=== PATIENT | female | born 1990 | race Caucasian/White ===

== ENCOUNTER 2016-09-09 07:36 | Inpatient (IN) | payer OTHER ==
[~2016-09-09] VITALS: Ht 170.2 cm; Wt 63.0 kg
[2016-09-09 08:50] LABS: HEMATOCRIT 35.4 % (36.0-46.0); MCH 29.1 PG (29.0-34.0); MCHC 34.7 G/DL (30.0-36.0); MCV 83.7 FL (83-99); MEAN PLAT.VOLUME 10.6 uM^3 (9.5-12.4); PLATELET COUNT 237 K/uL (156-360); RBC DIS.WIDTH-CV 11.2 % (11.8-14.6); RBC DIS.WIDTH-SD 34.3 % (39-53); RED BLOOD COUNT 4.23 M/uL (3.80-5.20); WHITE BLOOD COUNT 6.1 K/uL (4.1-10.2)
[2016-09-09 09:06] LABS: ADD MIUA? NO; BILIRUBIN NEGATIVE; BLOOD NEGATIVE; COLOR STRAW ((YELLOW)); GLUCOSE (STRIP) NEGATIVE; KETONES NEGATIVE; LEUKOCYTES NEGATIVE; NITRITE NEGATIVE; PROTEIN (STRIP) NEGATIVE; SPECIFIC GRAVITY 1.003 (1.000-1.030); UROBILINOGEN 0.2 MG/DL (0.2-1.0)
[2016-09-09 10:11] LABS: CHLORIDE 96 mEq/L (99-109); POTASSIUM 4.1 mEq/L (3.7-5.4); SODIUM 125 mEq/L (136-147)
[2016-09-09 10:13] LABS: GLUCOSE 201 mg/dL (70-99)
[2016-09-09 10:14] LABS: ANION GAP 4 MEQ/L (2-14)
[2016-09-09 10:17] LABS: GFR ESTIMATE (CALCULATED) > 59 mL/min/
[2016-09-09 10:18] LABS: UREA NITROGEN (BUN) 6 mg/dL (9-23)
[2016-09-09 10:26] LABS: QUANTITATIVE HCG < 4.0 MIU/ML
[2016-09-09] MEDS ORDERED: DESMOPRESS10 MCG/0.3 NS (11:29)
[2016-09-09] MEDS ORDERED: INSULIN PUMP SCCONT (11:33)
[2016-09-09 13:00] VITALS: BP 119/63
[2016-09-09 15:48] LABS: ANION GAP 7 MEQ/L (2-14); CHLORIDE 97 MEQ/L (99-109); GFR ESTIMATE (CALCULATED) > 59 mL/min/; POTASSIUM 3.6 MEQ/L (3.7-5.4); SAMPLE HEMOLYSIS CHECK 0; SAMPLE ICTERIC CHECK 0; SAMPLE LIPEMIA CHECK 0; SODIUM 129 MEQ/L (136-147); UREA NITROGEN (BUN) 5 mg/dL (9-23)
[2016-09-09 15:49] LABS: GLUCOSE 98 mg/dL (70-99)
[2016-09-09 16:00] VITALS: BP 112/71
[2016-09-09 19:30] VITALS: BP 120/71
[2016-09-10 00:09] VITALS: BP 99/70
[2016-09-10 03:33] VITALS: BP 110/59
[2016-09-10 08:00] VITALS: BP 99/50
[2016-09-10 10:04] LABS: HEMATOCRIT 37.8 % (36.0-46.0); MCHC 34.1 G/DL (30.0-36.0); MCV 84.9 FL (83-99); MEAN PLAT.VOLUME 10.4 uM^3 (9.5-12.4); PLATELET COUNT 261 K/uL (156-360); RBC DIS.WIDTH-CV 11.4 % (11.8-14.6); RBC DIS.WIDTH-SD 35.1 % (39-53); RED BLOOD COUNT 4.45 M/uL (3.80-5.20); WHITE BLOOD COUNT 5.7 K/uL (4.1-10.2)
[2016-09-10 10:19] LABS: GLUCOSE 116 mg/dL (70-99)
[2016-09-10 10:20] LABS: ANION GAP 5 MEQ/L (2-14)
[2016-09-10 10:21] LABS: CHLORIDE 108 mEq/L (99-109); POTASSIUM 4.7 mEq/L (3.7-5.4); SODIUM 138 mEq/L (136-147)
[2016-09-10 10:23] LABS: GFR ESTIMATE (CALCULATED) > 59 mL/min/; UREA NITROGEN (BUN) 7 mg/dL (9-23)
[2016-09-10 12:00] VITALS: BP 116/72
[2016-09-10 12:16] LABS: POINT-OF-CARE USER ID PUTDRM
[2016-09-10 16:00] VITALS: BP 110/75
[2016-09-10 23:45] VITALS: BP 151/67
[2016-09-11 08:05] LABS: ANION GAP 7 MEQ/L (2-14); CHLORIDE 101 MEQ/L (99-109); GFR ESTIMATE (CALCULATED) > 59 mL/min/; GLUCOSE 99 mg/dL (70-99); SAMPLE HEMOLYSIS CHECK 0; SAMPLE ICTERIC CHECK 0; SAMPLE LIPEMIA CHECK 0; SODIUM 135 MEQ/L (136-147); UREA NITROGEN (BUN) 11 mg/dL (9-23)
[2016-09-11 08:37] VITALS: BP 119/63
== END 2016-09-11 09:54 | disposition home or self-care (01) | DRG 641 ==
LOC: EME 07:36 → EDOF 11:52 → 2EASTP 11:52 → 2EAST 09-10 20:58
PROVIDERS: Hospitalist; Internal Medicine; Nurse Practitioner Family
DX: E86.0 Dehydration (principal); E87.1 Hypo-osmolality and hyponatremia; E10.9 Type 1 diabetes mellitus without complications; Z79.4 Long term (current) use of insulin; Z96.41 Presence of insulin pump (external) (internal)
CPT/HCPCS: 70450; 80048; 80048 91; 80400; 81003; 82533 91; 82948; 83930; 83935; 84300; 84443; 84702; 85027; 99281; 99285; J1885; J7030

== ENCOUNTER → 2016-10-14 | Outpatient (CLI) | payer OTHER ==
[~2016-10-14] MED LIST: DESMOPRESS10 MCG/0.3 NS; INSULIN PUMP SCCONT
== END | disposition home or self-care (01) ==
LOC: NUC 07:22
DX: K31.84 Gastroparesis (principal)
CPT/HCPCS: 78264; A9541